=== PATIENT | female | born 1965 | race Asian ===

== ENCOUNTER → 2017-05-31 | Outpatient (CLI) | payer BC ==
--- NOTE | 2017-05-31 11:27 | Diagnostic Imaging Report ---
PROCEDURE:ABDOMINAL ULTRASOUND COMPARISON:None. INDICATIONS:Chronic Hep B FINDINGS: Liver: 10.8 cm. Normal hepatic parenchymal echogenicity. No focal mass. Main portal vein: 0.9 cm. Hepatopedal flow. Gallbladder: Echogenic focus is present in the posterior wall of the gallbladder without shadowing. Echogenic focus with ringdown artifact is present in the anterior gallbladder wall. No echogenic calculi, gallbladder wall thickening, or pericholecystic fluid. Common Bile Duct: 1.0 mm. No echogenic filling defect. Sonographic Wallace's sign: Negative. Right kidney: 9.4 cm. No solid or cystic mass, echogenic calculi, or hydronephrosis. Normal parenchymal echogenicity. Left kidney: 10.0 cm. No solid or cystic mass, echogenic calculi, or hydronephrosis. Normal parenchymal echogenicity. 2.4 x 1.0 x 1.5 cm well-circumscribed anechoic region in the inferior pole the left kidney. Spleen: 7.5 cm. Pancreas: The visualized portions of the pancreas are normal. 0.7 x 0.4 x 0.6 cm anechoic region is present in the body of the pancreas. Inferior vena cava: Normal. Aorta: Normal. Ascites: None. CONCLUSION: 1. No acute sonographic abnormality. 2. Adenomyomatosis of the gallbladder 3. Pancreatic cyst. 4. Left renal simple cyst. Dictated by: Edmond Choudhary M.D. on 05/31/2017 at 11:37 Electronically approved by: Edmond Choudhary M.D. on 05/31/2017 at 11:37
== END ==
LOC: US 08:37
PROVIDERS: ATTEND Surgery
DX: B18.1 Chronic viral hepatitis B without delta-agent (principal)
CPT/HCPCS: 76700

== ENCOUNTER → 2017-12-09 | Outpatient (CLI) | payer BC ==
[2017-12-09 10:25] LABS: ALBUMIN 3.7 g/dL (3.5-5.0); BILIRUBIN,DIRECT 0.2 mg/dL (0.0-0.5)
--- NOTE | 2017-12-09 13:58 | Diagnostic Imaging Report ---
HISTORY: Chronic hepatitis B TECHNIQUE: Selected static images from complete abdominal ultrasound provided for INTERPRETATION: COMPARISON: Abdominal ultrasound 05/31/2017 FINDINGS: Pancreas: Visualized portions are normal. No ductal dilatation. A cyst in the body measures 4 x 6 x 6 mm and is stable. Liver: Measures 10.3 cm in sagittal plane. The echotexture is normal. A cyst in the right lobe measures 9 x 12 x 11 mm. This was not visible on previous exam. No solid mass. Hepatic capsule is smooth. Portal Vein: Measures 0.7 cm. Hepatopetal flow on spectral Doppler interrogation. Biliary Tree: Normal Gallbladder: Present. No gallbladder wall thickening or pericholecystic fluid. Tiny hyperechoic foci along the anterior wall are stable, some with comet tail artifact. CBD: 0.2 cm. Right Kidney: Length is 9.5 cm. Echotexture is normal. No mass or hydronephrosis. Left Kidney: Length is 10.4 cm. Echotexture is normal. A lower pole cyst measures 12 x 17 x 22 mm.. Spleen: 7.7 cm in length. No evidence for mass. Proximal Aorta: 1.6 cm. Mid Aorta: 1.2 cm. Distal Aorta: 1.3 cm. IVC: Patent No free fluid IMPRESSION: 1. Stable pancreas cyst. 2. Hepatic cyst as described above. No solid hepatic mass. 3. Adenomyomatosis. 4. Stable left renal cyst. Signed by: Dr. En Napier MD on 12/09/2017 1:54 PM
== END ==
LOC: US 08:21
PROVIDERS: ATTEND Surgery
DX: B19.10 Unspecified viral hepatitis B without hepatic coma (principal); Z01.84 Encounter for antibody response examination
CPT/HCPCS: 36415; 76700; 80076; 86704; 86706; 87340

== ENCOUNTER → 2018-07-04 | Outpatient (CLI) | payer BC ==
--- NOTE | 2018-07-04 12:52 | Diagnostic Imaging Report ---
EXAM: US ABDOMEN COMPLETE INDICATION: Chronic hepatitis C. COMPARISON: Abdominal ultrasound 12/09/2017. TECHNIQUE: Transverse and longitudinal lamb scale and color doppler sonographic images of the upper abdomen were obtained. FINDINGS: LIVER 10.8 cm in the right midclavicular line. Normal echogenicity of the liver with normal contour, no masses. SPLEEN 8.0 cm in maximum diameter. Normal echogenicity, no masses. GALLBLADDER No gallbladder wall thickening, distension, stone, or pericholecystic fluid. There is mild gallbladder sludge. Tiny hyperechoic foci along the anterior wall are stable, some with comet tail artifact. Negative reported sonographic Wallace's sign. BILE DUCTS No intra nor extra-hepatic biliary dilation. Common bile duct measures 0.2 cm PANCREAS: A cyst in the body measures up to 0.6 cm and is unchanged. RIGHT KIDNEY: 8.2 cm Echogenicity: Normal Collecting System: No hydronephrosis Stones: None Cyst/Mass: None LEFT KIDNEY: 10.5 cm Echogenicity: Normal Collecting System: No hydronephrosis Stones: None Cyst/Mass: No evidence of solid mass. There is a predominately anechoic cyst in the inferior pole measuring up to 2.5 cm, with peripheral echogenic components. Lesion is similar in size to the prior study. VESSELS: Aorta: Visualized portions are within normal size limits Inferior Vena Cava: Visualized portions are normal Main Portal Vein: 0.7 cm, normal size with hepatopetal flow. FREE FLUID: None IMPRESSION: No sonographic evidence of solid hepatic mass. Similar size of a left lower pole renal cyst which demonstrates some echogenic hyperechoic peripheral components, which may represent calcifications. A follow-up renal ultrasound is suggested in 6 months. Gallbladder adenomyomatosis. Mild gallbladder sludge. Unchanged pancreatic and left renal cysts. Signed by: Dr. Jonnie Bates MD on 07/04/2018 12:48 PM
== END ==
LOC: US 09:41
PROVIDERS: ATTEND Surgery
DX: B18.1 Chronic viral hepatitis B without delta-agent (principal)
CPT/HCPCS: 76700